=== PATIENT | male | born 1955 | race Caucasian/White ===

== ENCOUNTER 2016-12-19 13:00 | Outpatient (RCR) | payer BC | END 2016-12-20 | disposition home or self-care (01) | LOC: PTY 13:00 | DX: S39.012A Strain of muscle, fascia and tendon of lower back, initial encounter (principal) ==

== ENCOUNTER 2017-01-09 13:00 | Outpatient (RCR) | payer BC | END 2017-01-20 | disposition home or self-care (01) | LOC: PTY 13:00 | DX: S39.012A Strain of muscle, fascia and tendon of lower back, initial encounter (principal) ==

== ENCOUNTER 2017-03-20 13:00 | Outpatient (RCR) | payer BC | END 2017-03-22 | disposition home or self-care (01) | LOC: PTY 13:00 | DX: S39.012D Strain of muscle, fascia and tendon of lower back, subsequent encounter (principal) ==

== ENCOUNTER 2017-06-01 09:15 | Outpatient (RCR) | payer BC | END 2017-06-20 | disposition home or self-care (01) | LOC: PTY 09:15 | DX: M54.5 Low back pain (principal) ==

== ENCOUNTER 2017-06-23 15:48 | Outpatient (RCR) | payer BC | END 2017-07-20 | disposition home or self-care (01) | LOC: PTY 15:48 | DX: M54.5 Low back pain (principal) ==

== ENCOUNTER 2017-07-27 15:45 | Outpatient (RCR) | payer BC | END 2017-08-20 | disposition home or self-care (01) | LOC: PTY 15:45 | DX: M54.5 Low back pain (principal) ==